=== PATIENT | male | born 1980 | race Caucasian/White ===

== ENCOUNTER 2017-08-27 13:18 | Observation (INO) | payer OTHER ==
[2017-08-27] MEDS ORDERED: NS 1000 ML 1,000 ML ONE (13:23)
[2017-08-27] MEDS ORDERED: PHENERGAN INJ 25 MG ONE (13:30)
--- NOTE | 2017-08-27 13:32 | DR.GENAD ---
HPI - Complaint/Symptoms Chief Complaint Doctors Comments: Nausea + vomitting since about 1000 hrs today. He has associated abdominal cramping. He ate last today at about 0700 hrs. today, he had a 6 inch sub sandwich at [facility]. 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 - Nurses notes reviewed Nurses Notes Review: Yes - Source History Provided: Patient PE - Vital Signs Vitals: Temperature 98.4 F Pulse Rate 92 Respiratory Rate 19 Blood Pressure 139/88 O2 Sat by Pulse Oximetry 96 - General Limitations: No Limitations General Appearance: Alert, In No Apparent Distress, Other (diaphoretic) - Head Head Exam: Normal Inspection - Eyes Eye exam: Normal Appearance - ENT External Ear Exam: Normal External Inspection TM/Canal Exam: Bilateral Normal Nose Exam: Normal Nose Exam, Other (rhinorrhea) Mouth Exam: Normal Inspection Throat Exam: Normal Inspection - Neck Neck Exam: Normal Inspection, Full ROM, Trachea Midline - Chest Chest Inspection: Normal Inspection, Symmetric Chest Wall Rise - Respiratory Respiratory Exam: Normal Lung Sounds Bilat - Cardiovascular Cardiovascular Exam: Regular Rate, Normal Rhythm, +S1, +S2 - Abdominal Exam Abdominal Exam: Normal Inspection, Normal Bowel Sounds, Soft, Other (obese) - Extremities Extremities Exam: Normal Inspection - Back Back Exam: Normal Inspection - Neurologic Neurological Exam: Alert, Oriented X3 - Psychiatric Psychiatric Exam: Normal Affect, Normal Mood - Skin Skin Exam: Warm, Dry, Intact, Normal Color Course - Reevaluation 1st: Improved 2nd: Improved - Education/Counseling Education/Counseling: Patient, Education, Counseling Educated On: Treatment, Diagnosis, Prognosis, Needs for Follow Up ROR - Labs Reviewed Result Diagrams: 08/27/17 13:30 08/27/17 13:30 Laboratory: WBC 18.5 X10^3/uL (3.6-10.0) H 08/27/17 13:30 RBC 6.11 X10^6/uL (4.7-6.0) H 08/27/17 13:30 Hgb 16.7 g/dL (13.5-18.0) 08/27/17 13:30 Hct 48.5 % (42.0-54.0) 08/27/17 13:30 MCV 79.4 fL (80.0-100.0) L 08/27/17 13:30 MCH 27.4 pg (27.0-34.0) 08/27/17 13:30 MCHC 34.4 g/dL (33.0-35.0) 08/27/17 13:30 RDW 13.9 % (11.6-16.5) 08/27/17 13:30 Plt Count 403 X10^3/uL (150.0-450.0) 08/27/17 13:30 MPV 8.3 fL (7.4-11.0) 08/27/17 13:30 Neut % (Auto) 79.2 % (42.0-75.0) H 08/27/17 13:30 Lymph % (Auto) 12.3 % (21.0-51.0) L 08/27/17 13:30 Cassia % (Auto) 8.1 % (0.0-13.0) 08/27/17 13:30 Eos % (Auto) 0.0 % (0.9-2.9) L 08/27/17 13:30 Baso % (Auto) 0.4 % (0.2-1.0) 08/27/17 13:30 Neut # (Auto) 14.6 x10^3/uL (2.2-4.8) H 08/27/17 13:30 Lymph # (Auto) 2.3 X10^3/uL (1.3-2.9) 08/27/17 13:30 Cassia # (Auto) 1.5 x10^3/uL (0.3-0.8) H 08/27/17 13:30 Eos # (Auto) 0.0 x10^3/uL (0.0-0.2) 08/27/17 13:30 Baso # (Auto) 0.1 X10^3/uL (0.0-0.1) 08/27/17 13:30 Absolute Nucleated RBC 0.1 /100WBC 08/27/17 13:30 Sodium 135 mmol/L (136-145) L 08/27/17 13:30 Corrected Sodium 137 mmol/L (136-145) 08/27/17 13:30 Potassium 4.2 mmol/L (3.5-5.1) 08/27/17 13:30 Chloride 96 mmol/L (98-107) L 08/27/17 13:30 Carbon Dioxide 23.6 mmol/L (21-32) 08/27/17 13:30 BUN 39 mg/dL (7-18) H 08/27/17 13:30 Creatinine 2.83 mg/dL (0.70-1.30) H 08/27/17 13:30 Est GFR (MDRD) Af Amer 32 (>60) L 08/27/17 13:30 Est GFR (MDRD) Non-Af 27 (>60) L 08/27/17 13:30 Glucose 167 mg/dL (65-99) H 08/27/17 13:30 Calcium 9.8 mg/dL (8.5-10.1) 08/27/17 13:30 Corrected Calcium TNP 08/27/17 13:30 Total Bilirubin 0.80 mg/dL (0.2-1.0) 08/27/17 13:30 AST 18 Units/L (15-37) 08/27/17 13:30 ALT 12 Units/L (12-78) 08/27/17 13:30 Alkaline Phosphatase 121 Units/L (46-116) H 08/27/17 13:30 Creatine Kinase 360 Units/L (39-308) H 08/27/17 13:30 Total Protein 9.6 g/dL (6.4-8.2) H 08/27/17 13:30 Albumin 5.0 g/dL (3.4-5.0) 08/27/17 13:30 Globulin 4.6 g/dL (2.5-4.5) H 08/27/17 13:30 Albumin/Globulin Ratio 1.1 Ratio (1.1-2.1) 08/27/17 13:30 Amylase 32 Units/L (25-115) 08/27/17 13:30 Lipase 87 Units/L (73-393) 08/27/17 13:30 - XRAY XRAY Interpreted by: Radiologist (AAS: Non-specific gas pattern. paucity of small bowel fgas. ) - Diagnosis Discharge Problem: Heat exhaustion, Dehydration after exertion, Nausea & vomiting - Discharge Plan Disposition: ADMITTED INPATIENT Condition: Stable - Follow ups/Referrals Follow ups/Referrals: NFD,None [Primary Care Provider] - 3 days - Instructions Instructions: Heat Exhaustion Information, Dehydration, Adult, [id number]
[2017-08-27] MEDS ORDERED: PHENERGAN INJ 25 MG IV ONE (13:34)
[2017-08-27] MEDS ORDERED: NS 1000 ML 1,000 ML IV ONE (13:34)
[2017-08-27] MEDS ORDERED: BENTYL I.M. INJ 10 MG IM ONE (13:40)
[2017-08-27] MEDS ORDERED: ZOFRAN INJ 4 MG VIAL 16 MG, ATIVAN INJ 2 MG VIAL 1 MG, DECADRON INJ 10 MG in NS 50 ML I... IVP ONE (13:47)
[2017-08-27 13:50] VITALS: BMI 34.3
[2017-08-27 13:57] LABS: BASOPHILS # (AUTO) 0.1 X10^3/uL (0.0-0.1); BASOPHILS % (AUTO) 0.4 % (0.2-1.0); HEMATOCRIT 48.5 % (42.0-54.0); HEMOGLOBIN 16.7 g/dL (13.5-18.0); LYMPHOCYTES # (AUTO) 2.3 X10^3/uL (1.3-2.9); LYMPHOCYTES % (AUTO) 12.3 % (21.0-51.0); MEAN CORPUSCULAR HEMOGLOBIN 27.4 pg (27.0-34.0); MEAN CORPUSCULAR HGB CONC 34.4 g/dL (33.0-35.0); MEAN CORPUSCULAR VOLUME 79.4 fL (80.0-100.0); MEAN PLATELET VOLUME 8.3 fL (7.4-11.0); MONOCYTES # (AUTO) 1.5 x10^3/uL (0.3-0.8); MONOCYTES % (AUTO) 8.1 % (0.0-13.0); NEUTROPHILS # (AUTO) 14.6 x10^3/uL (2.2-4.8); NEUTROPHILS % (AUTO) 79.2 % (42.0-75.0); PLATELET COUNT 403 X10^3/uL (150.0-450.0); RED BLOOD COUNT 6.11 X10^6/uL (4.7-6.0); RED CELL DISTRIBUTION WIDTH 13.9 % (11.6-16.5); WHITE BLOOD COUNT 18.5 X10^3/uL (3.6-10.0)
[2017-08-27 14:01] LABS: ALANINE AMINOTRANSFERASE 12 Units/L (12-78); ALKALINE PHOSPHATASE 121 Units/L (46-116); AMYLASE 32 Units/L (25-115); ASPARTATE AMINO TRANSFERASE 18 Units/L (15-37); BLOOD UREA NITROGEN 39 mg/dL (7-18); CALCIUM 9.8 mg/dL (8.5-10.1); CARBON DIOXIDE 23.6 mmol/L (21-32); CHLORIDE 96 mmol/L (98-107); COR NA(FOR HYPERGLY) 137 mmol/L (136-145); CREATINE KINASE 360 Units/L (39-308); CREATININE 2.83 mg/dL (0.70-1.30); LIPASE 87 Units/L (73-393); SODIUM 135 mmol/L (136-145); TOTAL PROTEIN 9.6 g/dL (6.4-8.2); eGFR BLACK RACES 32 (>60); eGFR NON BLACK RACES 27 (>60)
--- NOTE | 2017-08-27 14:24 | RAD ---
HISTORY: Vomiting. Abdominal pain. Study: KUB Comparison: None Findings: There is a paucity of small bowel gas. Scattered colonic gas is noted. No abnormal calcifications s een to overlie the renal shadows or expected course the ureters. No acute bony abnormalities are keven ntified. IMPRESSION: 1. Paucity of small bowel gas. The bowel gas pattern is nonspecific. Follow-up as clinically indic ated. 2. I see no definite evidence of bowel obstruction or pneumoperitoneum on this KUB. Reported By:
[2017-08-27] MEDS ORDERED: PHENERGAN INJ 25 MG IV PRN (14:56)
[2017-08-27] MEDS ORDERED: BENTYL CAP 10 MG PO PRN (15:01)
[2017-08-27] MEDS: NS 1000 ML 1,000 ML IV SCH ×2 (15:57→23:57)
[2017-08-27] MEDS: ZOFRAN INJ 4 MG VIAL 16 MG, ATIVAN INJ 2 MG VIAL 1 MG, DECADRON INJ 10 MG in NS 50 ML I... IVP SCH (22:00)
[2017-08-27] MEDS ORDERED: DECADRON INJ PRESERVATIVE-FREE IM ONE (22:04)
[2017-08-27] MEDS ORDERED: NS 100 ML IV 100 ML IV ONE (22:05)
[2017-08-27] MEDS ORDERED: ATIVAN INJ 2 MG VIAL ONE (22:05)
[2017-08-27] MEDS ORDERED: ZOFRAN INJ 4 MG VIAL ONE (22:05)
[2017-08-28] MEDS: CATAPRES TAB 0.1 MG PO SCH ×3 (00:19→21:26)
[2017-08-28] MEDS: ZOFRAN INJ 4 MG VIAL 16 MG, ATIVAN INJ 2 MG VIAL 1 MG, DECADRON INJ 10 MG in NS 50 ML I... IVP SCH ×2 (04:47→10:32)
[2017-08-28 06:24] LABS: BASOPHILS % (AUTO) 0.1 % (0.2-1.0); HEMATOCRIT 40.9 % (42.0-54.0); LYMPHOCYTES # (AUTO) 0.7 X10^3/uL (1.3-2.9); LYMPHOCYTES % (AUTO) 3.8 % (21.0-51.0); MEAN CORPUSCULAR HEMOGLOBIN 27.4 pg (27.0-34.0); MEAN CORPUSCULAR HGB CONC 34.2 g/dL (33.0-35.0); MEAN CORPUSCULAR VOLUME 80.2 fL (80.0-100.0); MEAN PLATELET VOLUME 8.3 fL (7.4-11.0); MONOCYTES # (AUTO) 0.4 x10^3/uL (0.3-0.8); NEUTROPHILS # (AUTO) 17.2 x10^3/uL (2.2-4.8); NEUTROPHILS % (AUTO) 94.1 % (42.0-75.0); PLATELET COUNT 306 X10^3/uL (150.0-450.0); RED BLOOD COUNT 5.11 X10^6/uL (4.7-6.0); RED CELL DISTRIBUTION WIDTH 14.3 % (11.6-16.5); WHITE BLOOD COUNT 18.3 X10^3/uL (3.6-10.0)
[2017-08-28 06:30] LABS: ALANINE AMINOTRANSFERASE 24 Units/L (12-78); ALBUMIN 3.6 g/dL (3.4-5.0); ALKALINE PHOSPHATASE 90 Units/L (46-116); ASPARTATE AMINO TRANSFERASE 12 Units/L (15-37); BLOOD UREA NITROGEN 28 mg/dL (7-18); CALCIUM 8.4 mg/dL (8.5-10.1); CARBON DIOXIDE 24.9 mmol/L (21-32); CHLORIDE 105 mmol/L (98-107); COR NA(FOR HYPERGLY) 140 mmol/L (136-145); CREATINE KINASE 330 Units/L (39-308); CREATININE 1.39 mg/dL (0.70-1.30); SODIUM 138 mmol/L (136-145); TOTAL PROTEIN 7.5 g/dL (6.4-8.2); eGFR BLACK RACES > 60 (>60); eGFR NON BLACK RACES > 60 (>60)
[2017-08-28 06:54] LABS: BAND NEUTROPHILS % 2 % (0-10); PLATELET MORPHOLOGY COMMENT NORMAL (NORMAL)
--- NOTE | 2017-08-28 09:43 | RAD ---
Examination: Abdomen with PA chest History: Pain nausea and vomiting rule out obstruction Comparison reference 08/27/2017 Findings: PA upright chest demonstrates normal heart size with clear lungs and pleural spaces. Additi onal supine and erect views of abdomen indicate essentially normal gas pattern with no evidence for o bstruction, perforation, ascites or mass formation. Impression: No acute or significant findings identified in chest or abdomen. Reported By:
[2017-08-28] MEDS: NS 1000 ML 1,000 ML IV SCH ×3 (10:32→19:00)
[2017-08-28] MEDS ORDERED: ZOFRAN INJ 4 MG VIAL 16 MG, ATIVAN INJ 2 MG VIAL 1 MG, DECADRON INJ 10 MG in NS 50 ML I... IVP PRN (11:00)
--- NOTE | 2017-08-28 11:02 | DR.H&P ---
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 PT ATE LUNCH AND SHORT THEREAFTER HAD SUDDEN ONSET OF VOMITING. PT DID CO MUSCLE CRAMPING AND LEFT KNEE PAIN THE NIGHT PRIOR. PT CO PMH OF GOUT. PT WAS IN ACUTE RENAL FAILURE AND RHABDO ON ADMISSION. PT ADMITTED FOR IV HYDRATION AND FUTHER EVALUATION OF ACUTE ILLNESS. - Past Medical History Past Medical History: Gout - Past Surgical History Surgical History: Unknown - Family History Family Medical History: Diabetes Mellitus, Hypertension - Social History Does patient currently use any type of tobacco product: No Have you used tobacco products in the last 12 months: No Type of Tobacco Use: None Does any household member use tobacco: No Alcohol Use: None Drug Use: None - Medications Home Medications: No Known Home Medications 1 tab XX PRN PRN 08/27/17 [History Confirmed 08/27/17] - Review of Systems Constitutional: Weakness Eyes: No Symptoms Reported ENT: No Symptoms Reported Respiratory: No Symptoms Reported Cardiovascular: No Symptoms Reported Gastrointestinal: Nausea, Vomiting, Abdominal Pain Genitourinary: No Symptoms Reported Musculoskeletal: Leg Pain Skin: No Symptoms Reported Neurological: Weakness - Physical Exam Vital Signs: Temperature 98.0 F Pulse Rate [Right Brachial] 75 Pulse Rate [Left Brachial] 93 Pulse Rate 92 Respiratory Rate 20 Blood Pressure [Right Arm] 159/71 Blood Pressure 139/88 O2 Sat by Pulse Oximetry 98 Oriented: Normal Eyes: Normal Ear: Normal Nose: Normal Throat: Normal Respiratory: Clear Throughout Cardiovascular: Normal : Normal Auscultation: Bowel Sounds: Normal Palpation: Normal Tenderness: Epigastric Skin: Decreased Turgur Musculoskeletal: Left, Knee, Swelling, Tender Mood Description: Calm Speech Pattern: Clear, Appropriate - Assessment/Plan (1) Rhabdomyolysis Status: Acute Plan: ADMIT, IV HYDRATION. CARDIAC MONITORING. REPEAT AM LABS, AGGRESSIVE ORAL HYDRATION. BP MONITORING (2) Acute renal insufficiency Status: Acute (3) Dehydration after exertion Status: Acute (4) Heat exhaustion Status: Acute (5) Nausea & vomiting Status: Acute
--- NOTE | 2017-08-28 15:29 | RAD ---
History: Left knee pain Study: Left knee three views Findings: No fracture or displacement is seen. The cartilage spaces are maintained. There is a moderate size suprapatellar knee joint effusion seen. The patella appears intact as visual ized. Impression: 1. Moderate size suprapatellar knee joint effusion. 2. No acute osseous abnormality. Reported By:
[2017-08-28 20:36] LABS: STOOL FOR WBC NEGATIVE (NEGATIVE)
[2017-08-29] MEDS: NS 1000 ML 1,000 ML IV SCH (03:17)
[2017-08-29 06:05] LABS: BASOPHILS # (AUTO) 0.1 X10^3/uL (0.0-0.1); BASOPHILS % (AUTO) 0.3 % (0.2-1.0); HEMATOCRIT 37.7 % (42.0-54.0); HEMOGLOBIN 12.8 g/dL (13.5-18.0); LYMPHOCYTES # (AUTO) 2.5 X10^3/uL (1.3-2.9); LYMPHOCYTES % (AUTO) 16.2 % (21.0-51.0); MEAN CORPUSCULAR HEMOGLOBIN 27.3 pg (27.0-34.0); MEAN CORPUSCULAR HGB CONC 33.9 g/dL (33.0-35.0); MEAN CORPUSCULAR VOLUME 80.5 fL (80.0-100.0); MEAN PLATELET VOLUME 8.2 fL (7.4-11.0); MONOCYTES # (AUTO) 0.8 x10^3/uL (0.3-0.8); MONOCYTES % (AUTO) 5.1 % (0.0-13.0); NEUTROPHILS # (AUTO) 12.2 x10^3/uL (2.2-4.8); NEUTROPHILS % (AUTO) 78.4 % (42.0-75.0); PLATELET COUNT 244 X10^3/uL (150.0-450.0); RED BLOOD COUNT 4.68 X10^6/uL (4.7-6.0); RED CELL DISTRIBUTION WIDTH 14.3 % (11.6-16.5); WHITE BLOOD COUNT 15.6 X10^3/uL (3.6-10.0)
[2017-08-29 06:23] LABS: ALANINE AMINOTRANSFERASE 24 Units/L (12-78); ALBUMIN 2.9 g/dL (3.4-5.0); ALKALINE PHOSPHATASE 74 Units/L (46-116); ASPARTATE AMINO TRANSFERASE 11 Units/L (15-37); BLOOD UREA NITROGEN 14 mg/dL (7-18); CALCIUM 7.1 mg/dL (8.5-10.1); CARBON DIOXIDE 28.7 mmol/L (21-32); CHLORIDE 107 mmol/L (98-107); COR NA(FOR HYPERGLY) 142 mmol/L (136-145); CREATINE KINASE 204 Units/L (39-308); CREATININE 1.08 mg/dL (0.70-1.30); SODIUM 142 mmol/L (136-145); URIC ACID 6.3 mg/dL (3.5-7.2); eGFR BLACK RACES > 60 (>60); eGFR NON BLACK RACES > 60 (>60)
[2017-08-29] MEDS ORDERED: TORADOL 30 MG VIAL IVP ONE (11:44)
[2017-08-29 12:08] VITALS: BP 130/60
[2017-08-29] MEDS ORDERED: TORADOL 30 MG VIAL ONE (12:11)
== END 2017-08-29 13:20 | disposition home or self-care (01) | DRG 923 ==
LOC: ER 13:50 → OBS 14:51 → ICU 17:35
PROVIDERS: ADMIT Internal Medicine; ATTEND Internal Medicine
DX: T67.5XXA Heat exhaustion, unspecified, initial encounter (principal); M62.82 Rhabdomyolysis; N17.8 Other acute kidney failure; R11.2 Nausea with vomiting, unspecified; E86.0 Dehydration; R73.09 Other abnormal glucose; D72.828 Other elevated white blood cell count; M17.12 Unilateral primary osteoarthritis, left knee; M10.9 Gout, unspecified
CPT/HCPCS: 36415; 73564; 74018; 74022; 80053; 82150; 82274; 82550; 83036; 83630; 83690; 84550; 85025; 87045; 87338; 87427; 87449; 87493; 96365; 96372; 96374; 96375; 99283; 99284; A4216; A4222; G0378; J0500; J1100; J1885; J2060; J2405; J2550